=== PATIENT | male | born 1990 | race Caucasian/White ===

== ENCOUNTER 2021-06-24 09:48 | Emergency (ER) | payer SELFPAY ==
[2021-06-24 11:07] VITALS: BP 168/99; PULSE 87; RESP 18; TEMP 37; O2SAT 96; BMI 43.2
--- NOTE | 2021-06-24 11:17 | PC.NURSE ---
Took pt to ER in [facility]. I gave report to October. He was in bed comfortably with vitals running.
--- NOTE | 2021-06-24 11:19 | HMH.EDUTC ---
[facility] [place] Disposition Clinical Impression: Colitis Disposition: Home, Self-Care Condition on Discharge: Good Instructions: DI for Colitis Additional Instructions: Take antibiotics as prescribed. Follow-up with Dr. Abdirizak Bull, gastroenterology in [place]. Call to make appointment. You are being provided with a list of physicians available for follow-up of your condition. Please call a physician on this list to arrange a follow-up appointment as soon as possible. Prescriptions: Ciprofloxacin HCl [Cipro 500mg Tab] 500 mg PO BID #20 tab Transmission Status: Received by [facility] lisinopriL [Lisinopril] 40 mg PO DAILY #30 tab Transmission Status: Received by [facility] metroNIDAZOLE [Metronidazole] 500 mg PO TID #30 tab Transmission Status: Received by [facility] Referrals: Provider,Referral, [Primary Care Provider] - Medical Decision Making - Moustapha Inquiry Pt receiving controlled substance: No Moustapha was queried for this patient: No Vital Signs: 06/24/21 11:07 06/24/21 11:24 06/24/21 13:24 Temperature 98.6 F 98.4 F 98 F Temperature Source Oral Oral Oral Pulse Rate 78 Pulse Rate [Right Radial] 87 92 H Respiratory Rate 18 16 16 Blood Pressure 132/74 Blood Pressure [Right Arm] 168/99 H 166/100 H Blood Pressure Mean [Right Arm] 122 122 Blood Pressure Source [Right Arm] Automatic Cuff Automatic Cuff Blood Pressure Position Sitting Blood Pressure Position [Right Arm] Sitting Sitting 02 Sat by Pulse Oximetry 96 100 Oxygen Delivery Method Room Air Room Air Room Air - Lab Data Lab Results 06/24/21 11:40: WBC 6.9, RBC 5.57, Hgb 16.1, Hct 46.7, MCV 83.7, MCH 28.9, MCHC 34.6, RDW 13.5, Plt Count 272, MPV 6.8 L, Neut % (Auto) 55.1, Lymph % (Auto) 33.4, [place] % (Auto) 6.1, Eos % (Auto) 4.1, Baso % (Auto) 1.4, Neut # (Auto) 3.8, Lymph # (Auto) 2.3, [place] # (Auto) 0.4, Eos # (Auto) 0.3, Baso # (Auto) 0.1 06/24/21 11:40: Sodium 142, Potassium 4.2, Chloride 107, Carbon Dioxide 27, Anion Gap 12.2, BUN 11, Creatinine 0.90, Estimated Creat Clear 232, Estimated GFR 99, Est GFR ( Amer) 120, Glucose 113 H, Calcium 9.2, Total Bilirubin 0.5, AST 40, ALT 64, Alkaline Phosphatase 125, C-Reactive Protein 13.5 H, Total Protein 7.7, Albumin 4.2, Globulin 3.5 H, Albumin/Globulin Ratio 1.2, Amylase 71, Lipase 144 06/24/21 11:40: ESR 59 H 06/24/21 11:55: Stool Occult Blood Negative Result diagrams: 06/24/21 11:40 06/24/21 11:40 Orders (Tests/Meds): ED MEDICATIONS Discontinued Medications Generic Name Dose Route Start Last Admin Trade Name Freq PRN Reason Stop Dose Admin Iopamidol 75 ml 06/24/21 12:22 06/24/21 12:22 Iopamidol-370 (76%);100ml Bottle IV 06/24/21 12:23 75 ml ONCE ONE Administration Sodium Chloride 10 ml 06/24/21 12:22 06/24/21 12:22 Sodium Chloride 0.9% 10ml Syr (Rad Only) IV 06/24/21 12:23 10 ml ONCE ONE Administration Medical Decision Narrative: Patient state that he has been having blood in his stool on and off for the last few days States that blood has been both light and dark in color and fills the toilet at times and had been having pain in abdomen Discussed with patient and due to symptoms recommended transfer to the ED patient agreed and called ED spoke with Precious Rn and patient was moved to room 11 [facility] HPI - General Stated complaint: blood in stool Time Seen by Provider: 06/24/21 11:20 Mode of Arrival: Ambulatory Source of Information: Patient Limitations: No Limitations Description of Symptoms (Recalled from Triage Doc. by RN): Pt stated that he has been having abdominal pain and blood in his stool for 2 days. HEENT Symptoms (Recalled from RN notes): No Resp Symptoms (Recalled from RN notes): No Skin Symptoms (Recalled from RN notes): No MS Symptoms (Recalled from RN notes): No Functional Status (Recalled from RN notes): n/a - History of Present Illness Provider Complaint: Patient states that he h
[2021-06-24 11:24] VITALS: BP 166/100; PULSE 92; RESP 16; TEMP 36.9; O2SAT 100; BMI 40.8
--- NOTE | 2021-06-24 11:32 | CT_ITS ---
PROCEDURE: CT ABDOMEN PELVIS W CON CLINICAL INDICATION: abd pain COMPARISON: No exams were available for comparison TECHNIQUE: IV Contrast: 75ML Isovue 370 Oral Contrast None Axial images obtained with sagittal and coronal reformats. All CT scans at the facility use one or more dose reduction, viz: automated exposure control, ma/kV adjustment per patient size (including targeted exams where dose is matched to indication, i.e. head), or iterative reconstruction technique. FINDINGS: LOWER THORAX: Minimal atelectatic or fibrotic change in the lingula ABDOMEN & PELVIS: Fatty liver. No focal liver lesion apparent. The gallbladder, spleen, adrenal glands, and pancreas have an unremarkable appearance. No renal or ureteral calculi. No evidence of appendicitis. No pelvic mass or abnormal fluid collection. There is thickening of the ascending colon and transverse colon which may be related to colitis. There are few small nodes in the celiac region. No intestinal obstruction or free air. No acute bony findings. IMPRESSION: Thickening of the ascending and transverse colon suggestive of colitis. Otherwise negative. Dictated by: Lacho Aguiar MD 06/24/2021 12:34 Lacho Aguiar MD in [place] 06/24/2021 12:34
--- NOTE | 2021-06-24 11:47 | HMH.EDGENADL ---
ED Disposition Clinical Impression: Colitis Disposition: Home, Self-Care Condition on Discharge: Good Instructions: DI for Colitis Additional Instructions: Take antibiotics as prescribed. Follow-up with Dr. Abdirizak Bull, gastroenterology in [place]. Call to make appointment. You are being provided with a list of physicians available for follow-up of your condition. Please call a physician on this list to arrange a follow-up appointment as soon as possible. Prescriptions: Ciprofloxacin HCl [Cipro 500mg Tab] 500 mg PO BID #20 tab Transmission Status: Pending to [facility] lisinopriL [Lisinopril] 40 mg PO DAILY #30 tab Transmission Status: Pending to [facility] metroNIDAZOLE [Metronidazole] 500 mg PO TID #30 tab Transmission Status: Pending to [facility] Referrals: Provider,Referral, MD [Primary Care Provider] - - Critical Care Critical Care Time: No Attestation: On 06/24/21, the high probability of a clinically significant, sudden or life threatening deterioration of the following system(s) required my full and direct attention, intervention and personal management. The time I documented below is in addition to time spent performing reported procedures but includes the following listed in this critical care notation. Medical Decision Making - Moustapha Inquiry Pt receiving controlled substance: No Vital Signs: 06/24/21 11:07 06/24/21 11:24 Temperature 98.6 F 98.4 F Temperature Source Oral Oral Pulse Rate [Right Radial] 87 92 H Respiratory Rate 18 16 Blood Pressure [Right Arm] 168/99 H 166/100 H Blood Pressure Mean [Right Arm] 122 122 Blood Pressure Source [Right Arm] Automatic Cuff Automatic Cuff Blood Pressure Position [Right Arm] Sitting Sitting 02 Sat by Pulse Oximetry 96 100 Oxygen Delivery Method Room Air Room Air - Lab Data Lab Results 06/24/21 11:40: WBC 6.9, RBC 5.57, Hgb 16.1, Hct 46.7, MCV 83.7, MCH 28.9, MCHC 34.6, RDW 13.5, Plt Count 272, MPV 6.8 L, Neut % (Auto) 55.1, Lymph % (Auto) 33.4, [place] % (Auto) 6.1, Eos % (Auto) 4.1, Baso % (Auto) 1.4, Neut # (Auto) 3.8, Lymph # (Auto) 2.3, [place] # (Auto) 0.4, Eos # (Auto) 0.3, Baso # (Auto) 0.1 06/24/21 11:40: Sodium 142, Potassium 4.2, Chloride 107, Carbon Dioxide 27, Anion Gap 12.2, BUN 11, Creatinine 0.90, Estimated Creat Clear 232, Estimated GFR 99, Est GFR ( Amer) 120, Glucose 113 H, Calcium 9.2, Total Bilirubin 0.5, AST 40, ALT 64, Alkaline Phosphatase 125, C-Reactive Protein 13.5 H, Total Protein 7.7, Albumin 4.2, Globulin 3.5 H, Albumin/Globulin Ratio 1.2, Amylase 71, Lipase 144 06/24/21 11:40: ESR 59 H 06/24/21 11:55: Stool Occult Blood Negative Result diagrams: 06/24/21 11:40 06/24/21 11:40 Orders (Tests/Meds): ED MEDICATIONS Discontinued Medications Generic Name Dose Route Start Last Admin Trade Name Freq PRN Reason Stop Dose Admin Iopamidol 75 ml 06/24/21 12:22 06/24/21 12:22 Iopamidol-370 (76%);100ml Bottle IV 06/24/21 12:23 75 ml ONCE ONE Administration Sodium Chloride 10 ml 06/24/21 12:22 06/24/21 12:22 Sodium Chloride 0.9% 10ml Syr (Rad Only) IV 06/24/21 12:23 10 ml ONCE ONE Administration - CT Data CT Scan: Abdomen, Pelvis Time Received: 13:[address] Reviewed: Yes: I have viewed the radiologist's interpretation Findings Narrative: PROCEDURE: CT ABDOMEN PELVIS W CON CLINICAL INDICATION: abd pain COMPARISON: No exams were available for comparison TECHNIQUE: IV Contrast: 75ML Isovue 370 Oral Contrast None Axial images obtained with sagittal and coronal reformats. All CT scans at the facility use one or more dose reduction, viz: automated exposure control, ma/kV adjustment per patient size (including targeted exams where dose is matched to indication, i.e. head), or iterative reconstruction technique. FINDINGS: LOWER THORAX: Minimal atelectatic or fibrotic change in the lingula ABDOMEN & PELVIS: Fatty liver. No foc
[2021-06-24 11:52] LABS: Basophils # 0.1 K/mm3 (0-0.2); Basophils % 1.4 % (0.1-2.0); Eosinophils # 0.3 K/mm3 (0.0-0.4); Eosinophils % 4.1 % (0.1-12.0); Hematocrit 46.7 % (42.0-52.0); Hemoglobin 16.1 g/dL (14.1-18.0); Lymphocytes # 2.3 K/mm3 (0.7-4.5); Lymphocytes % 33.4 % (10-50); Mean Corpuscular HGB Conc 34.6 g/dL (31.8-35.4); Mean Corpuscular Hemoglobin 28.9 pg (27.0-31.2); Mean Corpuscular Volume 83.7 fl (80-94); Mean Platelet Volume 6.8 fl (7.4-10.4); Monocytes # 0.4 K/mm3 (0.1-1.0); Monocytes % 6.1 % (1.7-9.3); Neutrophils # 3.8 K/mm3 (1.8-7.8); Neutrophils % 55.1 % (37.0-80.0); Platelet Count 272 K/mm3 (142-424); Red Blood Count 5.57 M/mm3 (4.60-6.20); Red Cell Distribution Width 13.5 % (11.5-17.5); White Blood Count 6.9 K/mm3 (4.8-10.8)
[2021-06-24 11:54] LABS: Chloride 107 mmol/L (98-107); Potassium 4.2 mmoL/L (3.5-5.1); Sodium 142 mmol/L (136-145)
[2021-06-24 11:56] LABS: Amylase 71 U/L (30-110)
[2021-06-24 11:57] LABS: Alanine Aminotransferase 64 U/L (12-78); Albumin Level 4.2 g/dl (3.5-5.0); Albumin/Globulin Ratio 1.2 (1.1-1.8); Alkaline Phosphatase 125 U/L (38-126); Anion Gap 12.2 mEq/L (5-15); Aspartate Amino Transferase 40 U/L (17-59); Bilirubin,Total 0.5 mg/dl (0.2-1.3); Blood Urea Nitrogen 11 mg/dl (9-20); Calcium 9.2 mg/dl (8.4-10.2); Carbon Dioxide 27 mmol/L (22.0-30.0); Creatinine Clearance Estimated 232 mL/min (50-200); Estimated Glomerular Filt Rate 99 ml/min (>60); GFR (African American) 120 ML/MIN (>60); Globulin 3.5 g/dL (1.3-3.2); Glucose 113 mg/dl (74-100); Lipase 144 U/L (23-300); Total Protein,Serum 7.7 g/dl (6.3-8.2)
[2021-06-24 12:03] LABS: C-Reactive Protein 13.5 mg/L (0-4)
[2021-06-24 12:16] LABS: Occult Blood,Stool Negative (Negative)
[2021-06-24 12:33] LABS: Erythrocyte Sedimentation Rate 59 mm/hr (0-15)
[2021-06-24 13:24] VITALS: BP 132/74; PULSE 78; RESP 16; TEMP 36.6; O2SAT 98
== END 2021-06-24 13:26 | disposition home or self-care (01) ==
LOC: UTC 09:52 → ER 11:20
PROVIDERS: Emergency Provider Emergency Medicine
DX: K52.9 Noninfective gastroenteritis and colitis, unspecified (principal)
CPT/HCPCS: 74177; 80053; 82150; 82272; 83690; 85025; 85651; 86140; 99283; G0328; Q9967